=== PATIENT | female | born 1995 | race Two or more races ===

== ENCOUNTER 2025-05-28 16:18 | Emergency (ER) | payer OTHER ==
[~2025-05-28] VITALS: Ht 162.6 cm; Wt 80.2 kg
[2025-05-28 16:19] VITALS: BP 142/90; PULSE 80; RESP 18; TEMP 97.9; O2SAT 98
--- NOTE | 2025-05-28 17:10 | ED.PDOC ---
History of Present Illness HPI Comments Ms. Barkley is a 30 year old female with no prior medical history, who presents today with chief complaint of flu-like symptoms. She states she has had symptoms of fatigue, sore throat, and cough since the and that in the last 2-3 days she has begun to have sharp pain towards the back of side of her thr oat, 4/10 intensity, associated with swelling and redness, aggravated by swallowing. Additionally refers intermittent bilateral ear pain and fullness sensation for the last 5 days. She denies fever, shortness of breath, generalized body ache, muffled voice, inability to swallow, chest pain, and palpitations. Due to persistence of symptoms, she presents to the ED for evaluation. 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 Family History Family History (Other): Denies previous family history Social History Smoker: Non-Smoker Alcohol: Occasionally Drugs: Denies Drug Use Lives In: Home Constitutional: reports: fatigue EENTM: reports: ear pain, throat pain Respiratory: reports: cough Cardiovascular: denies: chest pain, dizzy spells, diaphoresis, Dyspnea on exertion, edema, irregular heart beat, left arm pain, lightheadedness, palpitations, PND, syncope, others Gastrointestinal: denies: abdomen distended, abdominal pain, blood streaked bowels, constipated, diarrhea, dysphagia, difficulty swallowing, hematemesis, melena, nausea, poor appetite, poor fluid intake, rectal bleeding, rectal pain, vomiting, others Genitourinary: denies: abnormal vagina bleeding, burning, dyspareunia, dysuria, flank pain, frequency, hematuria, incontinence, pain, , vagina discharge, urgency, others Neurological: denies: dizziness, fainting, headache, left sided numbness, left sided weakness, numbness, paresthesia, pre-existing deficit, right sided numbness, right sided weakness, seizure, speech problems, tingling, tremors, weakness, others Musculoskeletal: denies: back pain, gout, joint pain, joint swelling, muscle pain, muscle stiffness, neck pain, others Integumetry: denies: bruises, change in color, change in hair/nails, dryness, laceration, lesions, lumps, rash, wounds, others Hematologic/Lymphatic: denies: anemia, blood clots, easy bleeding, easy bru ising, swollen glands, others Endocrine: denies: excessive hunger, excessive sweating, excessive thirst, e xcessive urination, flushing, intolerance to cold, intolerance to heat, unexplained weight gain, unexplained weight loss, others Physical Exam General Appearance: Normal HEENT: PERRL/EOMI, Pharyngeal Erythema, TMs Normal, Other (No tonsillar swelling or pharyneal asymmetry observed ) Neck: Full Range of Motion, Non-Tender, Normal Inspection Respiratory: Lungs Clear, No Accessory Muscle Use, No Respiratory Distress, Normal Breath Sounds Cardiovascular: No Edema, No JVD, No Murmur, No Gallop, Normal Peripheral Puls es, Regular Rate/Rhythm Breast Exam: Deferred Gastrointestinal: No Organomegaly, Non Tender, No Pulsatile Mass, Normal Bowel Sounds Genitalia: Deferred Pelvic: Deferred Rectal: Deferred Extremities: No calf tenderness, Normal capillary refill, Normal inspection, Normal range of motion, No pedal edema Neurologic: No Motor Deficits, Normal Affect, Normal Mood, No Sensory Deficits Cerebellar Function: Normal Reflexes: Normal Skin: Normal Color Lymphatic: No Adenopathy Was a procedure done? Was a procedure done?: No Differential Dx Considerations may include: Respiratory Viral Syndrome, Influenza, Pneumonia, Otitis media, pharyngitis X-Ray, Labs, Meds, VS Vital Signs Date Time Temp Pulse Resp B/P (MAP) Pulse Ox O2 Delivery O2 Flow Rate FiO2 05/28/25 16:19 97.9 80 18 142/90 98 97.9 Time of 1ST Reevaluation: 18:05 Reevaluation 1ST: Unchanged Patient Education/Counseling: Diagnosis, Treatment Family Education/Counseling: No Family Present SEPSIS Sepsis Screen Date sepsis recognized/suspect: May 28, 2025 Time Sepsis recognized/suspect: 1619 Recent Procedure: No On Antibiotic Therapy: No Respiratory Rate >20: No Heart Rate >90: No Temp<36 C (96.8 F) or >38.3 C: No SBP <90 or MAP <65 mmHG: No New Acute Mental Status Change: No Is the patient on CPAP, BIPAP,: No Physician Orders Chest Two Views Routine (05/28/25 17:08) Vital Signs Date Time Temp Pulse Resp B/P (MAP) Pulse Ox O2 Delivery O2 Flow Rate FiO2 05/28/25 16:19 97.9 80 18 142/90 98 97.9 Departure 1 Departure Time of Disposition: 18:16 (Patient presented with flu-like symptoms associated with throat and ear pain concerning fo viral syndrome, pneumonia, pharyngitis, and peritonsillar abscess. 1. I personally interpreted the following: Chest Xray which was benign. After review of data, the patient is unlikely to have pneumonia, peritonsillar abscess, otitis media, or pharyngitis. She is cons idered stable for discharge. ) Impression: Primary Impression: Viral syndrome Disposition: HOME / SELF CARE / HOMELESS Condition: Stable Additional Instructions: You presented today with flu-like symptoms Your workup today was benign including chest x-ray Your symptoms are most likely due to respiratory viral syndrome Treatment is symptomatic It is important that you follow up with her regular doctor within 1 week If symptoms worsen or you have any other concerns please return to the emergency room. Critical Care Note Critical Care Time?: No Stability Stability form required: ZEB Pina RESIDENT May 28, 2025 17:10
--- NOTE | 2025-05-28 17:47 | DVH ---
XY CHEST TWO VIEWS ROUTINE CLINICAL HISTORY: Cough COMPARISON: None TECHNIQUE: Frontal and lateral view of the chest was obtained FINDINGS: Lines and Tubes: None Lungs: No focal consolidation. Pleura: No effusion. No pneumothorax. Cardiomediastinal contours: Unremarkable Bones: No acute osseous abnormality. IMPRESSION: 1. No acute cardiopulmonary disease.
== END 2025-05-28 22:33 | disposition home or self-care (01) ==
LOC: ER 16:18
DX: B34.9 Viral infection, unspecified (principal); Z88.0 Allergy status to penicillin
CPT/HCPCS: 71046